=== PATIENT | male | born 1980 | race American Indian/Alaskan Native ===

== ENCOUNTER 2017-02-13 09:31 | Day surgery (SDC) | payer OTHER ==
[2017-01-21 10:54] VITALS: BMI 24.0
[~2017-02-13 09:31] MED LIST: HEPARIN-NS 5,000 UNITS/500 ML 0 UNIT/0 ML BAG IV ONE; ceFAZolin IV 1 gm in Dextrose 1 GM/50 ML BAG IVPB ONE
[2017-02-13 10:53] LABS: CALCIUM 9.3 mg/dl (8.6-10.4); POTASSIUM 5.2 mmol/L (3.6-5.2)
[2017-02-13] MEDS ORDERED: Sodium Chloride 0.9% 1,000 ML IV ONE (12:20)
[2017-02-13] MEDS ORDERED: Midazolam 2 MG/2 ML VIAL ONE ×2 (12:27→13:04)
[2017-02-13] MEDS ORDERED: Propofol 10 mg/ml Inj (20 ML) ONE (12:27)
[2017-02-13] MEDS ORDERED: Lidocaine 1% Inj (20ml) ONE (12:46)
[2017-02-13] MEDS ORDERED: HYDROmorphone 0.5 mg/0.5 ml ISec IVP PRN (13:19)
--- NOTE | 2017-02-13 13:19 | PCM.SURG1 ---
Surgeon's Initial Post Op Note - Surgeon's Notes Surgeon: Linh Favor Maker: MARIUSZ [email or web address] Pre-Operative Diagnosis: Renal failure, non-functioning stent Operative Findings: left arm venous stent Post-Operative Diagnosis: same Operation Performed: removal of non-functioning left arm venous stent Specimen/Specimens Removed: left arm venous stent Estimated Blood Loss: EBL {In ML}: 5 Date of Surgery/Procedure: 02/13/17 Time of Surgery/Procedure: 12:55
[2017-02-13] MEDS ORDERED: Oxycodone/Acetaminophen 5/325 mg Tab PO PRN (13:20)
[2017-02-13 15:41] VITALS: BP 163/77; PULSE 73; RESP 18; TEMP 97; O2SAT 98
--- NOTE | 2017-02-14 01:11 | OP ---
PROCEDURE DATE: 02/13/2017 PREOPERATIVE DIAGNOSIS: Thrombosed stent, left forearm. PROCEDURE: Procedure carried out is removal of old stent/shunt, left forearm. SURGEON: Dr. Melton. BRAIDING OPERATOR: Dr. Zaragoza. ANESTHESIA ADMINISTERED BY: Mr. Kaiden CRNA The patient is a 36-year-old man, on dialysis, has a functioning fistula on left arm, however, in the forearm, he has a residual stent which looks to be 6 to 8 mm stent by approximately 8 cm long in his forearm which is visible under the skin, is not in the functioning part of the fistula and wants to have it removed. OPERATIVE FINDINGS: This is an old stent. This is removed completely. The wound was then closed with subcuticular closure and nylon closure to the skin. ESTIMATED BLOOD LOSS: 25 mL. OPERATION: Carried out is excision of old stent/shunt left forearm. At the end of the procedure, we had excellent pulsation and perfusion into the hand as well as good pulse in the fistula. Kodak Melton Jr., MD
== END 2017-02-13 15:44 | disposition home or self-care (01) ==
LOC: C.SDS 09:31
PROVIDERS: ATTEND Surgery Vascular Surgery
DX: T82.868A Thrombosis due to vascular prosthetic devices, implants and grafts, initial encounter (principal); N18.6 End stage renal disease
CPT/HCPCS: 36415; 36590; 80048; 88300; J0690; J2250; J2405; J2704; J3010; J7040

== ENCOUNTER 2018-06-11 06:03 | Observation (INO) | payer MEDICAID ==
[2018-06-04 11:24] VITALS: BMI 24.1
[2018-06-11] MEDS ORDERED: HEPARIN-NS 5,000 UNITS/500 ML 5,000 UNIT/500 ML BAG IV ONE ×2 (07:07→08:13)
[2018-06-11] MEDS ORDERED: ceFAZolin IV 1 gm in Dextrose 2 GM/100 ML BAG IVPB ONE (07:09)
[2018-06-11 08:17] LABS: CALCIUM 9.5 mg/dl (8.6-10.4)
[2018-06-11] MEDS ORDERED: Midazolam 2 MG/2 ML VIAL ONE (08:25)
[2018-06-11] MEDS ORDERED: Propofol 10 mg/ml Inj (20 ML) ONE (08:25)
[2018-06-11] MEDS ORDERED: Lidocaine Hydrochloride 5 ML INJ ONE (09:16)
[2018-06-11] MEDS ORDERED: Thrombin Topical 20,000 Intl Units Spray Kit TOP ONE (10:07)
[2018-06-11] MEDS ORDERED: Iohexol 240 (50 ml) ONE (11:00)
[2018-06-11] MEDS ORDERED: Sodium Chloride 0.9% 20 ML IV ONE (11:02)
--- NOTE | 2018-06-11 11:53 | PCM.SURG1 ---
Surgeon's Initial Post Op Note - Surgeon's Notes Surgeon: Dr. Melton Director Mba: Dr. Eckert PGY3, Aaron MS3 Type of Anesthesia: General Endo Anesthesia Administered By: Dr. Schuster Pre-Operative Diagnosis: Cephalic arch syndrome Operative Findings: See operative dictation Post-Operative Diagnosis: Same Operation Performed: Cephalic-internal juglular bypass with bovine graft, intraoperative angiogram Specimen/Specimens Removed: None Estimated Blood Loss: EBL {In ML}: 25 Blood Products Given: N/A Drains Used: No Drains Post-Op Condition: Good Date of Surgery/Procedure: 06/11/18 Time of Surgery/Procedure: 11:53
[2018-06-11] MEDS: HYDROmorphone 0.5 mg/0.5 ml ISec IVP PRN ×2 (12:05→12:45)
[2018-06-11] MEDS ORDERED: Sodium Chloride 0.9% 500 ML IV ONE (13:30)
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
--- NOTE | 2018-06-11 23:57 | OP ---
PROCEDURE DATE: 06/11/2018 PREOPERATIVE DIAGNOSES: Multiple aneurysms, left arm and cephalic arch syndrome. PROCEDURES CARRIED OUT: Revision of arteriovenous fistula, left cephalic vein to jugular vein bypass using a bovine graft of 7 mm with intraoperative arteriogram. SURGEON: Kodak Melton Jr., MD AWS DEVELOPER: Chris Eckert DO ANESTHESIOLOGIST: Keven Schuster MD INDICATIONS OF PROCEDURE: The patient is a 37-year-old man with renal insufficiency, recalcitrant cephalic arch syndrome, and huge aneurysms developed in the arm, but a good functioning fistula. OPERATIVE FINDINGS: 1. The completion arteriogram showed that the bypass graft was 7 mm from the cephalic vein arch to the jugular vein was widely patent. 2. 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 DESCRIPTION OF PROCEDURE: The patient was given general anesthesia and intravenous antibiotics. The neck was extended. The jugular vein dissected. The cephalic vein dissected. A tunnel created between these. Then, a 7-mm bovine graft was then anastomosed first to the jugular vein and then brought through the tunnel and anastomosed in an end-to-side fashion to the cephalic vein. After completion of this, there seemed to be much less pulsatility and the graft seemed to be improved. We then checked the completion arteriogram which showed that the graft was patent and there was both cephalic arch stenosis as well as innominate vein stenosis on the left side. After that had been done, we then closed the wounds with Monocryl 5-0 nylon sutures. BLOOD LOSS: Less than 100 mL. OPERATIONS CARRIED OUT: 1. Revision of arteriovenous fistula. 2. Cephalic vein to jugular vein bypass. 3. Intraoperative arteriogram. Kodak Melton Jr., MD cc: MD Bertin Issa MD
[2018-06-12] MEDS ORDERED: Multivitamin Vitamin B Complex (Nephro-Vite) Tab PO SCH (08:00)
--- NOTE | 2018-06-12 09:18 | CP.PCM.DIS ---
Provider - Provider Date of Admission: 06/11/18 11:54 Attending physician: Kodak Melton Jr, MD Consults: 06/11/18 11:56 Internal Medicine Consult Routine Comment: Consulting Provider: Bertin Pacheco Consulting Physician: Bertin Pacheco Reason for Consult: Medical 06/11/18 11:57 Nephrology Consult Routine Comment: Consulting Provider: Jordan Hyman Consulting Physician: Jordan Hyman Reason for Consult: Dialysis Time Spent in preparation of Discharge (in minutes): 35 Diagnosis - Discharge Diagnosis (1) Status post vascular surgery Status: Resolved Hospital Course - Lab Results Lab Results: Most Recent Lab Values Sodium 138 mmol/L (132-148) 06/11/18 06:47 Potassium 5.2 mmol/L (3.6-5.2) 06/11/18 06:47 Chloride 95 mmol/L (98-107) L 06/11/18 06:47 Carbon Dioxide 28 mmol/L (22-30) 06/11/18 06:47 Anion Gap 20 (10-20) 06/11/18 06:47 BUN 55 mg/dL (9-20) H 06/11/18 06:47 Creatinine 10.7 mg/dL (0.8-1.5) H* 06/11/18 06:47 Est GFR ( Amer) 7 06/11/18 06:47 Est GFR (Non-Af Amer) 6 06/11/18 06:47 Random Glucose 93 mg/dL (75-110) 06/11/18 06:47 Calcium 9.5 mg/dl (8.6-10.4) 06/11/18 06:47 Blood Type O POSITIVE 06/11/18 09:27 Antibody Screen Negative 06/11/18 09:27 - Hospital Course Hospital Course: 37F presented for an elective cephalic-jugular bypass graft placement he tolerated the procedure well he stayed for observation. No acute events noted he had an unremarkable recover an dis clear for discharge home with followup. Discharge Exam - Head Exam Head Exam: NORMAL INSPECTION - Eye Exam Eye Exam: EOMI, Normal appearance - ENT Exam ENT Exam: Mucous Membranes Moist - Neck Exam Additional comments: dressing clean dry and intact - Respiratory Exam Respiratory Exam: NORMAL BREATHING PATTERN, UNREMARKABLE - Cardiovascular Exam Cardiovascular Exam: +S1, +S2 - GI/Abdominal Exam GI & Abdominal Exam: Unremarkable - Neurological Exam Neurological exam: Alert - Psychiatric Exam Psychiatric exam: Normal Affect, Normal Mood - Skin Skin Exam: Dry, Intact Discharge Plan - Follow Up Plan Condition: GOOD Disposition: HOME/ ROUTINE
[2018-06-12] MEDS ORDERED: NIFEDIPINE PO SCH (10:00)
[2018-06-12] MEDS ORDERED: NIFEdipine 60 mg ER Tab PO SCH (10:00)
--- NOTE | 2018-06-12 10:08 | RAD ---
Date of service: 06/11/2018 PROCEDURE: Intraoperative Fluoroscopy. HISTORY: CEPHALIC ARCH SYNDROME FINDINGS: Fluoroscopic assistance was provided. Fluoroscopy time = 16.6 sec. Radiation dose = 2.82 mGy. Please refer to the operative report from JASWINDER Gan.
[2018-06-12 10:49] VITALS: RESP 18; O2SAT 98
[2018-06-12 13:47] VITALS: TEMP 97.5
[2018-06-12 14:04] VITALS: BP 138/92; PULSE 93
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
--- NOTE | 2018-06-13 04:54 | DS ---
CHIEF COMPLAINT: Surgery. HISTORY OF PRESENT ILLNESS: This is a 37-year-old male, well known to me with a history of hypertension, CKD, on hemodialysis. The patient was admitted for reversal of AV fistula. He has aneurysm in AV fistula site. The patient was seen by Dr. Melton, and the patient underwent AV fistula repair, and the patient therefore discharged. The patient's condition is stable upon discharge. The patient has a hemodialysis done. No fever. No chills. PHYSICAL EXAMINATION: VITAL SIGNS: Blood pressure 138/92, pulse 93, respiratory rate 18, temperature 97.5. SKIN: No rashes. No bruises. Chronic changes. HEENT: Atraumatic and normocephalic. Negative pallor. Negative jaundice. Extraocular movements are intact. NECK: Supple. Flat neck veins. No JVD. No lymph node. No thyromegaly. CHEST WALL: Bilateral symmetrical expansion. LUNGS: Clear. CARDIOVASCULAR SYSTEM: S1 and S2, regular. ABDOMEN: Soft and nontender. Bowel sounds are positive. GENITALIA: Normal. CENTRAL NERVOUS SYSTEM: Awake, alert, and oriented x3. ASSESSMENT: 1. Arteriovenous fistula with aneurysm, status post revision. 2. Hypertension. 3. End-stage renal disease, on hemodialysis. PLAN: Discharge the patient. Bertin Pacheco MD
== END 2018-06-12 15:58 | disposition home or self-care (01) ==
LOC: C.SDS 06:03 → C.9S 11:54 → C.6T 13:48
PROVIDERS: ADMIT Surgery Vascular Surgery; ATTEND Surgery Vascular Surgery
DX: I87.1 Compression of vein (principal); N18.6 End stage renal disease; I12.0 Hypertensive chronic kidney disease with stage 5 chronic kidney disease or end stage renal disease; E78.00 Pure hypercholesterolemia, unspecified; M32.9 Systemic lupus erythematosus, unspecified; Z99.2 Dependence on renal dialysis
CPT/HCPCS: 35612; 36415; 36838; 80048; 86850; 86900; C1768; G0378; J0690; J1170; J1644; J2250; J2405; J2704; J3010; J7030; J7040; Q9966